=== PATIENT | male | born 1955 | race Caucasian/White ===

== ENCOUNTER 2016-11-27 16:54 | Emergency (ER) | payer BC, OTHER ==
[~2016-11-27 16:54] MED LIST: Sodium Chloride Irrig Solution 250 ML BOT ONE
[2016-11-27] MEDS ORDERED: Adacel (T-DAP) 0.5 ML VIAL ONE (18:00)
[2016-11-27] MEDS ORDERED: Lidocaine 1% 20 ML MDV ONE (18:00)
--- NOTE | 2016-11-27 18:31 | RAD ---
THREE VIEWS OF THE LEFT THUMB 11/27/16 COMPARISON: None. HISTORY: Trauma, injury, pain. FINDINGS: Soft tissue irregularity is seen involving the volar aspect of the thumb distally suggesting soft ti ssue laceration. There are corticated osseous fragments, both anterior and posterior to the first in terphalangeal joint suggesting prior fracture fragments. No acute fracture or dislocation. No radiopaque foreign body. IMPRESSION: Soft tissue injury involving the distal aspect of the left thumb as above. POS: [facility]
[2016-11-27] MEDS ORDERED: Triple Antibiotic Oint 1 GM Packet ONE (18:46)
== END 2016-11-27 19:00 | disposition home or self-care (01) ==
LOC: MADERS 16:54
DX: S61.012A Laceration without foreign body of left thumb without damage to nail, initial encounter (principal); E78.5 Hyperlipidemia, unspecified; J44.9 Chronic obstructive pulmonary disease, unspecified; I10 Essential (primary) hypertension; I25.10 Atherosclerotic heart disease of native coronary artery without angina pectoris; F17.210 Nicotine dependence, cigarettes, uncomplicated; W26.8XXA Contact with other sharp object(s), not elsewhere classified, initial encounter; Y93.89 Activity, other specified; Y92.69 Other specified industrial and construction area as the place of occurrence of the external cause; Y99.0 Civilian activity done for income or pay
CPT/HCPCS: 12002; 90471; 90715; J2001

== ENCOUNTER 2024-10-29 13:53 | Emergency (ER) | payer BC, MEDICARE, OTHER ==
[2024-10-29] MEDS ORDERED: Bacitracin 1 PK ONE (14:12)
[2024-10-29] MEDS ORDERED: Cephalexin 500 MG CAP ONE (14:12)
[2024-10-29] MEDS ORDERED: Lidocaine 1% PF 5 ML VIAL ONE (14:12)
== END 2024-10-29 16:06 | disposition home or self-care (01) ==
LOC: MADERS 13:53
DX: S61.411A Laceration without foreign body of right hand, initial encounter (principal); I25.10 Atherosclerotic heart disease of native coronary artery without angina pectoris; I10 Essential (primary) hypertension; J44.9 Chronic obstructive pulmonary disease, unspecified; F17.210 Nicotine dependence, cigarettes, uncomplicated; Z95.9 Presence of cardiac and vascular implant and graft, unspecified; W26.8XXA Contact with other sharp object(s), not elsewhere classified, initial encounter
CPT/HCPCS: 12002; 99283